=== PATIENT | male | born 1970 | race Caucasian/White ===

== ENCOUNTER 2024-08-31 16:22 | Emergency (ER) | payer OTHER ==
[~2024-08-31] VITALS: Ht 160 cm; Wt 69.0 kg
[~2024-08-31 16:22] MED LIST: unknown meds
[2024-08-31 16:23] VITALS: BP 159/90; PULSE 91; RESP 20; TEMP 97.7; O2SAT 99
== END 2024-08-31 17:50 | disposition home or self-care (01) ==
LOC: ER 16:22
DX: F10.229 Alcohol dependence with intoxication, unspecified (principal); Y90.9 Presence of alcohol in blood, level not specified
CPT/HCPCS: 99283